=== PATIENT | female | born 1970 | race Caucasian/White ===

== ENCOUNTER → 2021-09-26 | Day surgery (SDC) | payer OTHER ==
[~2021-09-26] VITALS: Ht 167.6 cm; Wt 72.6 kg
[~2021-09-26] MED LIST: ASPIRIN EC81 MG PO; ATORVASTATIN CA80 MG PO; CALCIUM MAGNES1 EAC1 PO; DICLOFENAC SODI75 MG PO; ISOSORBIDE MONO60 MG PO; PROTONIX 40MG T40 MG PO; TOPROL XL 25MG25 MG PO; TRESIBA100 UNIT/1 SC
[2021-09-26 10:18] LABS: HCT 43.7 % (37.0-47.0); HGB 14.5 g/dl (12.5-16.0); MCH 28.4 pg (25.0-31.0); MCHC 33.2 g/dL (32.0-36.0); MCV 85.5 fL (78.0-100.0); RBC 5.11 M/uL (4.20-5.40); WBC 11.2 K/uL (4.0-10.5)
[2021-09-26 10:40] LABS: ALBUMIN 3.5 g/dL (3.4-5.0); BILIRUBIN - TOTAL 0.3 mg/dL (0.2-1.0); BUN/CREAT RATIO (CALC) 34.8 RATIO; CREATININE 0.46 mg/dL (0.51-0.95); POTASSIUM 4.6 mmol/L (3.5-5.1); TOTAL PROTEIN 7.5 g/dL (6.4-8.2)
== END | disposition home or self-care (01) ==
LOC: FAS 09:28
PROVIDERS: Orthopaedic Surgery
DX: M65.841 Other synovitis and tenosynovitis, right hand (principal); M65.331 Trigger finger, right middle finger; M77.8 Other enthesopathies, not elsewhere classified; M67.441 Ganglion, right hand; Z79.82 Long term (current) use of aspirin; Z79.4 Long term (current) use of insulin; Z79.899 Other long term (current) drug therapy; Z88.0 Allergy status to penicillin; Z88.8 Allergy status to other drugs, medicaments and biological substances
CPT/HCPCS: 36415; 80053; J1100; J1885; J2250; J2405; J2704; J3010; J7120